=== PATIENT | female | born 1965 | race African-American/Black ===

== ENCOUNTER 2019-06-28 23:13 | Emergency (ER) | payer OTHER ==
[~2019-06-28] VITALS: Ht 162.6 cm; Wt 106.8 kg
[~2019-06-28 23:13] MED LIST: ALBUTEROL
[2019-06-28 23:29] VITALS: BP 106/72
== END 2019-06-29 01:00 | disposition left against medical advice (07) ==
LOC: ER 23:13
DX: L29.9 Pruritus, unspecified (principal); Z53.21 Procedure and treatment not carried out due to patient leaving prior to being seen by health care provider

== ENCOUNTER 2021-11-26 20:29 | Emergency (ER) | payer OTHER ==
[~2021-11-26] VITALS: Ht 165.1 cm; Wt 110.0 kg
[2021-11-26] MEDS ORDERED: LIDOCAINE 5% PATCH TOP SCH (22:51)
[2021-11-26] MEDS ORDERED: IBUPROFEN 400MG TABLET PO ONE (23:00)
[2021-11-26] MEDS ORDERED: ACETAMINOPHEN 325MG TABLET PO ONE (23:00)
[2021-11-26 23:45] VITALS: BP 154/83
[2021-11-27] MEDS ORDERED: TOPUD MT (00:17)
[2021-11-27] MEDS ORDERED: LIDO700A15 TP (00:17)
[2021-11-27] MEDS ORDERED: NAPR-1176 MT (00:17)
== END 2021-11-27 00:39 | disposition home or self-care (01) ==
LOC: ER 20:29
DX: S09.8XXA Other specified injuries of head, initial encounter (principal); M54.50 Low back pain, unspecified; W18.39XA Other fall on same level, initial encounter; Y93.89 Activity, other specified; Y92.89 Other specified places as the place of occurrence of the external cause; Y99.8 Other external cause status; J45.909 Unspecified asthma, uncomplicated; Z98.890 Other specified postprocedural states; Z79.899 Other long term (current) drug therapy
CPT/HCPCS: 99284